=== PATIENT | female | born 1995 | race Hispanic/Latino ===

== ENCOUNTER → 2018-03-23 | Emergency (ER) | payer SELFPAY ==
[~2018-03-23] MED LIST: Haloperidol Lactate 5 MG/ML VIAL ONE; ISOVUE-370 76%-LOCM 1 ML ONE; Lorazepam 2 MG/ML VIAL ONE; Water For Inject, Bacteriostat 30 ML ONE; Ziprasidone 20 MG VIAL ONE
[2018-03-23 15:05] LABS: #Basophils 0.1 thou/uL (0.0-0.2); #Lymphocytes 1.9 thou/uL (1.20-3.40); #Neutrophils 10.2 thou/uL (1.40-6.50); %Basophils 0.5 % (0.0-1.0); %Eosinophils 0.2 % (0.0-10.0); %Lymphocytes 14.4 % (28.0-48.0); %Monocytes 7.5 % (0.0-4.0); %Neutrophils 77.4 % (31.0-61.0); Hemoglobin 14.6 g/dL (12.0-16.0); Mean Corpuscular Hemoglobin 30.2 pg (25.0-35.0); Mean Corpuscular Volume 88.8 fL (78.0-98.0); Mean Platelet Volume 7.4 fL (7.4-10.4); Platelet Count 255 thou/uL (130-400); RBC Distribution Width 11.3 % (11.5-14.5); Red Blood Cell (RBC) Count 4.82 mill/uL (4.00-5.20); White Blood Cell (WBC) Count 13.2 thou/uL (4.8-10.8)
[2018-03-23 15:10] LABS: BHCG - Serum Negative (NEGATIVE); Pregs Control Background? CLEAR/WHITE (CLR/WHITE); Pregs Control Bar Appear? YES (CONTROL BAR)
[2018-03-23 15:25] LABS: ALT (SGPT) 19 U/L (8-55); AST (SGOT) 39 U/L (5-34); Acetaminophen Less than 6.0 mcg/mL (10.0-30.0); Albumin 4.5 g/dL (3.5-5.0); Alcohol Less than 10 mg/dL (Less than 10); Alkaline Phosphatase 88 U/L (40-150); Anion Gap 16 mmol/L (10-20); BUN (Urea Nitrogen) 11 mg/dL (7.0-18.7); Bilirubin, Total 0.5 mg/dL (0.2-1.2); CK (CPK) 1083 U/L (29-168); Calc. Creatinine Clearance 0 mL/min (70-130); Calcium 9.7 mg/dL (7.8-10.44); Carbon Dioxide 19 mmol/L (22-29); Chloride 105 mmol/L (98-107); Estimated GFR-MDRD Greater than 90; Globulin 3.4 g/dL (2.4-3.5); Glucose 105 mg/dL (70-105); Potassium 3.3 mmol/L (3.5-5.1); Protein, Total 7.9 g/dL (6.0-8.3); Salicylate Less than 8.0 mg/dL (15.0-30.0); Sodium 137 mmol/L (136-145)
--- NOTE | 2018-03-24 12:03 | RAD ---
ABDOMEN 1 VIEW: HISTORY: Foreign body. COMPARISON: None. FINDINGS: There appear to be extensive calcifications throughout the abdomen and the pelvis. This is of uncert ain significance. There is a radiopaque ovoid foreign object projecting over the expected location o f the descending colon measuring approximately 2.7 x 1.3 cm. IMPRESSION: 1. Radiopaque foreign object projecting over the left hemiabdomen in the expected location of the de scending colon. 2. Extensive flocculent calcifications throughout the abdomen and pelvis. POS: [facility]
--- NOTE | 2018-03-24 12:04 | RAD ---
CHEST 1 VIEW: HISTORY: Foreign body. COMPARISON: None. FINDINGS: Lungs are clear. No pneumothorax or effusion. Cardiac silhouette and mediastinal contours are withi n normal limits. Abnormal calcification projecting over the upper abdomen. IMPRESSION: No acute intrathoracic abnormality. POS: [facility]
--- NOTE | 2018-03-24 20:29 | CT ---
ABDOMEN CT WITH CONTRAST PELVIC CT WITH CONTRAST: History: Abnormal behavior. Psych evaluation. Possible overdose. Comparison: None. FINDINGS: ABDOMEN CT: Lung bases are clear. Normal heart size. No significant pericardial fluid. Visualized aorta is unrema rkable. Gallbladder is unremarkable. Liver, spleen, pancreas and adrenal glands have appropriate enhancement. Symmetric enhancement of the kidneys. No obstructive uropathy. There are extensive calcifications noted throughout the abdomen, predominately mesenteric in location as well as along the retroperitoneum. Distribution favors calcified lymph nodes. No mesenteric mass, free air, or free fluid. Limited evaluation of the alimentary canal by the lack of oral contrast. No evidence of bowel obstruc tion. Ileocecal junction is normal. Normal caliber appendix. Fecal material is noted in a nondistende d, nondilated colon. CT PELVIS: Uterus and adnexal structures are unremarkable. Urinary bladder is unremarkable. No pelvic mass, lymp hadenopathy, free air or free fluid. There is a metallic density in the right aspect of the pelvis which may be within the distal sigmoid colon. This foreign body measures 1.6 x 2.7 cm. Ingested material is favored. Direct visualization wi th sigmoidoscopy is recommended. No obvious associated bowel perforation. No lytic or blastic lesions . IMPRESSION: 1. Multiple calcified lymph nodes throughout the abdomen and pelvis. 2. Possible round ingested foreign body noted in the sigmoid colon. POS: [facility]
[2018-03-25 03:30] LABS: #Basophils 0.1 thou/uL (0.0-0.2); #Lymphocytes 1.9 thou/uL (1.20-3.40); #Monocytes 0.7 thou/uL (0.11-0.59); #Neutrophils 8.2 thou/uL (1.40-6.50); %Basophils 0.6 % (0.0-1.0); %Eosinophils 0.2 % (0.0-10.0); %Lymphocytes 17.6 % (28.0-48.0); %Monocytes 6.3 % (0.0-4.0); %Neutrophils 75.3 % (31.0-61.0); Hemoglobin 14.9 g/dL (12.0-16.0); Mean Corpuscular HGB CONC 34.8 g/dL (32.0-36.0); Mean Corpuscular Hemoglobin 31.1 pg (25.0-35.0); Mean Corpuscular Volume 89.3 fL (78.0-98.0); Mean Platelet Volume 7.5 fL (7.4-10.4); Platelet Count 264 thou/uL (130-400); RBC Distribution Width 11.6 % (11.5-14.5); White Blood Cell (WBC) Count 10.9 thou/uL (4.8-10.8)
[2018-03-25 03:58] LABS: Anion Gap 15 mmol/L (10-20); BUN (Urea Nitrogen) 8 mg/dL (7.0-18.7); CK (CPK) 900 U/L (29-168); Calc. Creatinine Clearance 0 mL/min (70-130); Carbon Dioxide 22 mmol/L (22-29); Chloride 106 mmol/L (98-107); Estimated GFR-MDRD Greater than 90; Glucose 103 mg/dL (70-105); Potassium 3.6 mmol/L (3.5-5.1); Sodium 139 mmol/L (136-145)
== END ==
LOC: ERS 13:39
DX: R45.851 Suicidal ideations (principal); F84.0 Autistic disorder; F41.9 Anxiety disorder, unspecified; Z79.899 Other long term (current) drug therapy
CPT/HCPCS: 36415; 71045; 74018; 74177; 80048; 80053; 80307; 82550; 84703; 85025; 96372; J1630; J2060; J3486